=== PATIENT | female | born 2005 ===

== ENCOUNTER → 2023-06-09 | Outpatient (CLI) | payer OTHER ==
[2023-06-10 08:12] LABS: Candida species (DNA Probe) Positive (NEGATIVE); G. vaginalis (DNA Probe) Positive (NEGATIVE); T. vaginalis (DNA Probe) Negative (NEGATIVE)
== END | disposition home or self-care (01) ==
LOC: LAB SHORT 16:56 → LAB 16:56
PROVIDERS: Obstetrics & Gynecology
DX: N76.0 Acute vaginitis (principal)
CPT/HCPCS: 87480; 87510; 87660

== ENCOUNTER → 2023-09-10 | Outpatient (CLI) | payer OTHER ==
[~2023-09-10] MED LIST: NIFE30ER PO; OXYC5
[2023-09-10 19:24] LABS: BASOPHILS ABSOLUTE AUTO 0.04 K/mm3 (0.00-0.23); BASOPHILS PERCENT AUTO 0 % (0-2); EOSINOPHILS ABSOLUTE AUTO 0.02 K/mm3 (0.00-0.68); EOSINOPHILS PERCENT AUTO 0 % (0-6); Hematocrit 41.7 % (33.0-51.0); Hemoglobin 15.2 g/dL (11.5-16.0); IMMATURE GRAN ABSOLUTE AUTO 0.06 K/mm3 (0.00-0.10); IMMATURE GRAN PERCENT AUTO 1 % (0-1); LYMPHOCYTES ABSOLUTE AUTO 3.47 K/mm3 (0.84-5.20); LYMPHOCYTES PERCENT AUTO 33 % (21-46); MONOCYTES ABSOLUTE AUTO 0.76 K/mm3 (0.16-1.47); MONOCYTES PERCENT AUTO 7 % (4-13); Mean Corpuscular HGB 34.3 pg (26.0-34.0); Mean Corpuscular HGB Conc 36.5 g/dL (31.5-36.5); Mean Corpuscular Volume 94 fL (80-100); Mean Platelet Volume 11.5 fL (9.1-12.4); NEUTROPHILS ABSOLUTE AUTO 6.28 K/mm3 (1.96-9.15); NEUTROPHILS PERCENT AUTO 59 % (41-73); Platelet Count 308 K/mm3 (150-400); RDW Coefficient Variation 12.7 % (11.7-14.2); RDW Standard Deviation 43.6 fL (35.1-46.3); Red Blood Cell Count 4.43 M/mm3 (3.80-5.20); White Blood Cell Count 10.63 K/mm3 (4.00-11.30)
[2023-09-10 20:24] LABS: Albumin/Globulin Ratio 0.5 (0.8-1.8); Bilirubin, Total 0.2 mg/dL (0.1-1.0); Bun/Creatinine Ratio 19.2 (12.0-20.0); Calcium, Blood 7.8 mg/dL (8.5-10.1); Creatinine, Blood 0.83 mg/dL (0.40-1.00)
== END ==
LOC: LAB 17:54 → LAB SHORT 17:54
PROVIDERS: Obstetrics & Gynecology
DX: O36.5999 Maternal care for other known or suspected poor fetal growth, unspecified trimester, other fetus (principal); Z3A.00 Weeks of gestation of pregnancy not specified
CPT/HCPCS: 80053; 82570; 84156; 85025

== ENCOUNTER → 2023-09-10 | Outpatient (CLI) | payer OTHER ==
[2023-09-10 20:37] LABS: Protein, Urine Random 2188.6 mg/dL (0.0-11.9)
== END ==
LOC: LAB 16:05 → LAB SHORT 16:05
PROVIDERS: Obstetrics & Gynecology
DX: O36.5999 Maternal care for other known or suspected poor fetal growth, unspecified trimester, other fetus (principal); Z3A.00 Weeks of gestation of pregnancy not specified
CPT/HCPCS: 82570; 84156

== ENCOUNTER → 2023-09-11 | Outpatient (CLI) | payer OTHER ==
[2023-09-11 16:35] LABS: Source, Urine Clean Catch
[2023-09-11 17:55] LABS: Appearance, Urine Turbid (Clear); Bilirubin, Urine Neg (Neg); Blood, Urine 3+ (Neg); Color, Urine Yellow (P-Yellow); Glucose Qualitative, Urine Neg (Neg); Ketones, Urine 1+ (Neg); Leukocyte Esterase, Urine 1+ (Neg); Nitrite, Urine Neg (Neg); Protein, Urine 4+ (Neg); Specific Gravity, Urine 1.025 (1.003-1.022); Urobilinogen, Urine NORM (Normal)
[2023-09-11 18:18] LABS: Amorphous Mod (0-Heavy); Bacteria Many /hpf; Squamous Epithelial Cells Many /hpf (Few)
[2023-09-11 18:19] LABS: Granular Casts 0-2 /lpf (0)
== END ==
LOC: LAB SHORT 16:32 → LAB 16:32
PROVIDERS: Obstetrics & Gynecology
DX: O09.93 Supervision of high risk pregnancy, unspecified, third trimester (principal); Z3A.33 33 weeks gestation of pregnancy
CPT/HCPCS: 81001; 87086

== ENCOUNTER 2023-09-16 15:46 | Inpatient (IN) | payer OTHER ==
[~2023-09-16] VITALS: Ht 170.2 cm; Wt 68.0 kg
[2023-09-16] VITALS (30 sets, daily range): BP systolic 110–172; BP diastolic 73–112
[2023-09-16] MEDS ORDERED: NIFE30ER PO (16:13)
[2023-09-16] MEDS ORDERED: OXYC5 (16:14)
[2023-09-16 16:16] LABS: BASOPHILS ABSOLUTE AUTO 0.03 K/mm3 (0.00-0.23); BASOPHILS PERCENT AUTO 0 % (0-2); EOSINOPHILS ABSOLUTE AUTO 0.11 K/mm3 (0.00-0.68); EOSINOPHILS PERCENT AUTO 1 % (0-6); Hematocrit 37.3 % (33.0-51.0); IMMATURE GRAN PERCENT AUTO 1 % (0-1); LYMPHOCYTES PERCENT AUTO 32 % (21-46); MONOCYTES ABSOLUTE AUTO 1.07 K/mm3 (0.16-1.47); MONOCYTES PERCENT AUTO 8 % (4-13); Mean Corpuscular HGB 34.5 pg (26.0-34.0); Mean Corpuscular HGB Conc 34.9 g/dL (31.5-36.5); Mean Corpuscular Volume 99 fL (80-100); NEUTROPHILS ABSOLUTE AUTO 8.03 K/mm3 (1.96-9.15); NEUTROPHILS PERCENT AUTO 59 % (41-73); Platelet Count 361 K/mm3 (150-400); RDW Coefficient Variation 12.7 % (11.7-14.2); Red Blood Cell Count 3.77 M/mm3 (3.80-5.20); White Blood Cell Count 13.64 K/mm3 (4.00-11.30)
[2023-09-16 16:39] LABS: Alanine Aminotransfer (ALT/SGP 45 U/L (12-78); Albumin, Blood 1.9 g/dL (3.4-5.0); Albumin/Globulin Ratio 0.5 (0.8-1.8); Alk Phos 148 U/L (50-136); Anion Gap 5 mmol/L (6-16); Aspartate Aminotrans (AST/SGOT 69 U/L (12-37); Bilirubin, Direct <0.1 mg/dL (0.0-0.3); Bilirubin, Indirect Unable to Calculate mg/dL (0.1-0.7); Bilirubin, Total 0.2 mg/dL (0.1-1.0); Blood Urea Nitrogen 11 mg/dL (8-24); Bun/Creatinine Ratio 15.3 (12.0-20.0); CO2, Blood 24 mmol/L (21-32); Calcium, Blood 8.1 mg/dL (8.5-10.1); Chloride, Blood 107 mmol/L (98-108); Creatinine, Blood 0.72 mg/dL (0.40-1.00); Globulin, Blood 3.6 g/dL (2.2-4.0); Glomerular Filtration Rate 123 (60-); Glucose, Blood 92 mg/dL (70-99); Potassium, Blood 4.7 mmol/L (3.5-5.5); Sodium, Blood 136 mmol/L (136-145); Total Protein, Blood 5.5 g/dL (6.4-8.2)
[2023-09-16 16:58] LABS: International Normalized Ratio 0.84; Prothrombin Time Results 8.9 Sec (9.7-11.5)
[2023-09-16 17:49] LABS: Source, Urine Clean Catch
[2023-09-16 17:54] LABS: Appearance, Urine Clear (Clear); Bilirubin, Urine Neg (Neg); Blood, Urine 4+ (Neg); Glucose Qualitative, Urine Neg (Neg); Ketones, Urine Neg (Neg); Leukocyte Esterase, Urine Neg (Neg); Nitrite, Urine Neg (Neg); Protein, Urine 3+ (Neg); Urobilinogen, Urine NORM (Normal)
[2023-09-16 18:09] LABS: Bacteria Few /hpf; Color, Urine Pale Yellow (P-Yellow); Squamous Epithelial Cells Rare /hpf (Few); White Blood Cells, Urine 0-2 /hpf (0-5)
--- NOTE | 2023-09-16 19:01 | NUR ---
09/16/231900 Bonnie Goldsmith 1G ANCEG GIVEN BY ANESTHESIA AT 1828
[2023-09-16 19:21] LABS: Creatinine, Urine Random 20.1 mg/dL (27.00-270.00); Protein, Urine Random 57.9 mg/dL (0.0-11.9); Protein/Creat Ratio, Ur Random 2.9
--- NOTE | 2023-09-16 20:30 | NUR ---
PT ARRIVES TO [facility] FROM [place] VIA GURNEY FOLLOWING PROCEDURE TO EXPLORE DEHISCED C/S INCISION THAT HAS BEEN OOZING FROM 09/12/23 IN [place]. REPORT IS RECEIVED FROM BYRON ALBRECHT. APPROX 200ML CLOTS REMOVED AND INCISION CLOSED. ABD WITH MEFIX TAPE IS CDI. PT IS AWAKE AND ALERT, AOX4. SHE DENIES PAIN AT THIS TIME. TAKING SIPS OF WATER. LS CLEAR, ABD TONE ACTIVE, PT REPORTS LOOSE STOOLS TODAY. GREGORIO DRAINING BLUE URINE AT BEDSIDE DUE TO PROCEDURE. 20GA IV IN R AC PATENT. REFLEXES BRISK, NO CLONUS. PT DENIES H/A, NAUSEA. LE SWELLING 2+ UP TO KNEES.
[2023-09-17] VITALS (22 sets, daily range): BP systolic 119–153; BP diastolic 72–104
[2023-09-17 06:23] LABS: BASOPHILS ABSOLUTE AUTO 0.02 K/mm3 (0.00-0.23); BASOPHILS PERCENT AUTO 0 % (0-2); EOSINOPHILS ABSOLUTE AUTO 0.01 K/mm3 (0.00-0.68); EOSINOPHILS PERCENT AUTO 0 % (0-6); Hematocrit 36.7 % (33.0-51.0); IMMATURE GRAN ABSOLUTE AUTO 0.08 K/mm3 (0.00-0.10); IMMATURE GRAN PERCENT AUTO 1 % (0-1); LYMPHOCYTES ABSOLUTE AUTO 2.86 K/mm3 (0.84-5.20); LYMPHOCYTES PERCENT AUTO 23 % (21-46); MONOCYTES ABSOLUTE AUTO 0.58 K/mm3 (0.16-1.47); MONOCYTES PERCENT AUTO 5 % (4-13); Mean Corpuscular HGB 34.9 pg (26.0-34.0); Mean Corpuscular HGB Conc 35.4 g/dL (31.5-36.5); Mean Corpuscular Volume 98 fL (80-100); Mean Platelet Volume 9.8 fL (9.1-12.4); NEUTROPHILS ABSOLUTE AUTO 8.93 K/mm3 (1.96-9.15); NEUTROPHILS PERCENT AUTO 72 % (41-73); Platelet Count 335 K/mm3 (150-400); RDW Coefficient Variation 12.7 % (11.7-14.2); RDW Standard Deviation 45.4 fL (35.1-46.3); Red Blood Cell Count 3.73 M/mm3 (3.80-5.20); White Blood Cell Count 12.48 K/mm3 (4.00-11.30)
[2023-09-17 06:44] LABS: Albumin, Blood 1.9 g/dL (3.4-5.0); Albumin/Globulin Ratio 0.5 (0.8-1.8); Bilirubin, Total 0.3 mg/dL (0.1-1.0); Bun/Creatinine Ratio 15.2 (12.0-20.0); Calcium, Blood 8.2 mg/dL (8.5-10.1); Creatinine, Blood 0.59 mg/dL (0.40-1.00); Globulin, Blood 3.6 g/dL (2.2-4.0); Potassium, Blood 4.8 mmol/L (3.5-5.5); Total Protein, Blood 5.5 g/dL (6.4-8.2)
--- NOTE | 2023-09-17 14:32 | NUR ---
09-17-23 1230 pts boyfriend here, and verbal and written discharge instructions given and strong importance on resting when she goes home and not being up and around and doing more than she should. Instructed on her meds increased from 30mgXL to 60mgXL and importance of signs and symptoms to be aware of. Pt and SO both verbalized understanding and plan to return tomorrow am at 0830 for a BP check. [facility] [place] [facility] pt states that she doesnt plan to go back up there until thursday when she has another follow uo for her BP
== END 2023-09-17 13:00 | disposition home or self-care (01) | DRG 769 ==
LOC: ER 15:46 → BC 17:54
PROVIDERS: Physician Assistant; ADMIT Obstetrics & Gynecology
PROC: 0UC Female Reproductive System, Extirpation (ICD-10-PCS; principal; 2023-09-16 16:45)
DX: O90.0 Disruption of cesarean delivery wound (principal); O90.2 Hematoma of obstetric wound; O14.15 Severe pre-eclampsia, complicating the puerperium; Z79.899 Other long term (current) drug therapy; Z79.891 Long term (current) use of opiate analgesic
CPT/HCPCS: 36415; 80048; 80053; 80076; 81001; 82570; 84156; 85025; 85384; 85610; 85730; 86850; 86900; 86901; 96374-59; 99284-25; A9270; J0360; J0690; J1100; J1170; J2405; J2704; J3010; Q9968